=== PATIENT | male | born 1975 | race Caucasian/White ===

== ENCOUNTER 2018-03-26 20:26 | Emergency (ER) | payer OTHER, MEDICAID, SELFPAY ==
[2018-03-26 20:32] VITALS: BP 151/88; PULSE 74; RESP 14; TEMP 36.7; O2SAT 99
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
[2018-03-26] MEDS: AMPICILLIN/SULBACTAM 3 GM 3 GM in SODIUM CHLORIDE 0.9% 100 ML IV (22:07)
[2018-03-26] MEDS: TET,DIPH,PERTUSS(ACELL),VAC/PF 0.5 ML SYRINGE IM (22:13)
[2018-03-26 22:52] VITALS: BP 140/80; PULSE 67; RESP 14; O2SAT 100
[2018-03-26] MEDS: HYDROCODONE/ACET 5/325 PREPACK 1 BOTTLE MISC (23:20)
[2018-03-26 23:39] VITALS: BP 136/77; PULSE 71; RESP 16; O2SAT 99
== END 2018-03-26 23:40 | disposition home or self-care (01) ==
PROVIDERS: Emergency Provider Emergency Medicine; PCP Family Medicine
DX: S81.811A Laceration without foreign body, right lower leg, initial encounter (principal); W55.42XA Struck by pig, initial encounter
CPT/HCPCS: 12004; 12034; 90471; 96365; 99283; 99284; 90715; J0295

== ENCOUNTER → 2018-03-27 14:43 | Outpatient (CLI) | payer OTHER, MEDICAID, SELFPAY ==
--- NOTE | 2018-03-27 14:44 | DI.RAD.S_ITS ---
PROCEDURE: XR ELBOW LT MIN 3V INDICATIONS: LEFT ELBOW PAIN TECHNIQUE: 3 views of the elbow were acquired. COMPARISON: None. FINDINGS: Bones: No fractures or dislocations. No suspicious bony lesions. Soft tissues: No elbow joint effusion. No suspicious soft tissue calcifications. IMPRESSION: No acute radiographic findings. If there is continued pain, followup exam or additional imaging such as MRI or CT could be performed for further assessment. Dictated by: Cherri Arnold M.D. on 03/27/2018 at 15:02 Approved by: Cherri Arnold M.D. on 03/27/2018 at 15:04
== END ==
PROVIDERS: PCP Family Medicine; Visit Provider Family Medicine
DX: M25.522 Pain in left elbow (principal)
CPT/HCPCS: 73080

== ENCOUNTER 2022-02-11 05:51 | Emergency (ER) | payer OTHER, MEDICAID, SELFPAY ==
[2022-02-11 06:00] VITALS: BP 152/80; PULSE 73; RESP 17; O2SAT 98; BMI 37.5
[2022-02-11 06:13] LABS: Add Manual Diff / Slide Review NO; Basophils Absolute Auto 100 /uL (0-100); Eosinophils Absolute Auto 300 /uL (0-450); Hematocrit 43.4 % (41-53); Lymphocytes Absolute Auto 2900 /uL (1100-4500); Lymphocytes Percent Auto 33.8 % (25-40); Mean Corpuscular HGB Conc 34.4 % (30-36); Mean Corpuscular Hemoglobin 31.2 PG (26-34); Mean Corpuscular Volume 90.5 fL (80-100); Monocytes Absolute Auto 700 /uL (0-900); Monocytes Percent Auto 8.7 % (3-14); Neutrophils Absolute Auto 4500 /uL (1500-7000); Neutrophils Percent Auto 52.5 % (50-75); Platelet Count 343 X10^3/uL (150-400); Red Cell Distribution Width 13.6 % (11.6-14.8); White Blood Cell Count 8.6 X10^3/uL (4.5-11.0)
--- NOTE | 2022-02-11 06:13 | ED.GENADULT ---
HPI - General Adult <Adalberto Galindo DO - Last Filed: 02/11/22 17:57> General Chief complaint: Abdominal Pain Stated complaint: vomiting, dizzy Time Seen by Provider: 02/11/22 06:06 Source: patient and family Mode of arrival: Wheelchair Limitations: no limitations History of Present Illness HPI narrative: Patient is a 38-year-old male who is here for evaluation of dizzy sensation and nausea and vomiting. He states that the symptoms woke him from sleep earlier today. No headache. No ringing in his ears. No sore throat. No chest pain. No shortness of breath. He is having some abdominal pain and nausea and vomiting. Has not tried anything for symptoms prior to arrival. Has never had this in past. Related Data Previous Rx's Medication Instructions Recorded amoxicillin 875 mg-potassium 1 tab PO Q12H #14 tabs 03/26/18 clavulanate 125 mg tablet diazepam 2 mg tablet (Valium) 2 mg PO BID-TID PRN muscle spasm 02/11/22 #10 tabs meclizine 25 mg tablet 25 mg PO BID-TID PRN dizziness #14 02/11/22 tabs ondansetron 4 mg disintegrating 4 mg PO TID-QID PRN nausea and 02/11/22 tablet vomiting #10 tabs Allergies Allergy/AdvReac Type Severity Reaction Status Date / Time No Known Drug Allergies Allergy Verified 03/27/18 13:56 Review of Systems <Adalberto Galindo DO - Last Filed: 02/11/22 17:57> Constitutional Constitutional: Denies headache(s) ENT Ears, Nose, Mouth, and Throat: Reports vertigo, Denies headache(s) and Denies sore throat Cardiovascular Cardiovascular: Reports system reviewed and no additional complaints, except as documented Respiratory Respiratory: Reports system reviewed and no additional complaints, except as documented Gastrointestinal Gastrointestinal: Reports nausea and Reports vomiting Musculoskeletal Musculoskeletal: Reports system reviewed and no additional complaints, except as documented Integumentary/Breasts Skin/Breast: Reports system reviewed and no additional complaints, except as documented Neurologic Neurologic: Reports vertigo and Denies headache(s) Hematologic/Lymphatic On Anticoagulants: No Patient History <Adalberto Galindo DO - Last Filed: 02/11/22 17:57> Medical History Healthy adult Social History Smoking Status: Never smoker alcohol intake: never substance use type: does not use Smoking Status: Never smoker Substance Use Type: does not use Exam <Adalberto Galindo DO - Last Filed: 02/11/22 17:57> Initial Vital Signs Initial Vital Signs: Vital Signs Pulse Rate 73 02/11/22 06:00 Respiratory Rate 17 02/11/22 06:00 Blood Pressure 152/80 H 02/11/22 06:00 Pulse Oximetry 98 02/11/22 06:00 Oxygen Delivery Method 02/11/22 06:00 Const General: cooperative, comfortable, well developed, well groomed and diaphoretic HENMT Head: normal to inspection and normocephalic Resp Effort & Inspection: normal respiratory effort Auscultation: clear to auscultation bilaterally Cardio Rate: regular rate Rhythm: regular rhythm GI Inspection: normal to inspection and non-distended Skin General: no rashes or lesions noted Neuro General: patient alert, patient awake and moves all extremities Cognition: normal cognition Speech: speech normal Extrem General: normal to inspection and capillary refill normal Psych Appearance: grossly normal and well kempt <Wolfgang Doyle DO - Last Filed: 02/11/22 10:04> Initial Vital Signs Initial Vital Signs: Vital Signs Pulse Rate 73 02/11/22 06:00 Respiratory Rate 17 02/11/22 06:00 Blood Pressure 152/80 H 02/11/22 06:00 Pulse Oximetry 98 02/11/22 06:00 Oxygen Delivery Method 02/11/22 06:00 Course <Adalberto Galindo DO - Last Filed: 02/11/22 17:57> Orders Ordered: Discontinued Medications Diazepam (Diazepam 10 Mg/2 Ml Syringe) 2 mg IV NOW ONE Stop: 02/11/22 06:14 Last Admin: 02/11/22 06:20 Dose: 2 mg Documented By: CINTIA Sodium Chloride (Normal Saline 0.9%) 1,000 mls @ 1,000 mls/hr IV BOLUS ONE Stop: 02/11/22 07:05 Last Infusion: 02/11/22 07:35 Dose: 0 mls/hr Documented By: Admin: 02/11/22 06:19 Dose: 1,000 mls/hr Documented By: CINTIA Ondansetron HCl (Ondansetron 4 Mg/2 Ml Inj) 4 mg IV NOW ONE Stop: 02/11/22 06:14 Last Admin: 02/11/22 06:20 Dose: 4 mg Documented By: CINTIA Vital Signs Vital signs: Vital Signs - 8 hr 02/11/22 06:00 02/11/22 06:45 02/11/22 08:30 Temperature 97.5 F L Pulse Rate 73 64 Respiratory Rate 17 18 Blood Pressure 152/80 H 128/85 Pulse Oximetry 98 98 Oxygen Delivery Method Room Air Room Air 02/11/22 09:32 Temperature Pulse Rate 74 Respiratory Rate 18 Blood Pressure 131/85 Pulse Oximetry 99 Oxygen Delivery Method <Wolfgang Doyle DO - Last Filed: 02/11/22 10:04> Orders Ordered: Discontinued Medications Diazepam (Diazepam 10 Mg/2 Ml Syringe) 2 mg IV NOW ONE Stop: 02/11/22 06:14 Last Admin: 02/11/22 06:20 Dose: 2 mg Documented By: CINTIA Sodium Chloride (Normal Saline 0.9%) 1,000 mls @ 1,000 mls/hr IV BOLUS ONE Stop: 02/11/22 07:05 Last Infusion: 02/11/22 07:35 Dose: 0 mls/hr Documented By: Admin: 02/11/22 06:19 Dose: 1,000 mls/hr Documented By: CINTIA Ondansetron HCl (Ondansetron 4 Mg/2 Ml Inj) 4 mg IV NOW ONE Stop: 02/11/22 06:14 Last Admin: 02/11/22 06:20 Dose: 4 mg Documented By: CINTIA Reevaluation(s) Reevaluation #1: Patient demonstrates significant if not complete resolution of symptoms after above-stated therapies. He no longer is dizzy, is not vomiting, was able to walk a straight line without any apparent ataxia. Reevaluation #2: NIH Stroke Scale 1a. LOC: Patient is alert and keenly responsive (0) 1b. LOC Questions: Patient answers both LOC questions accurately (0) 1c. LOC Commands: Patient performs both tasks correctly (0) 2. Best Gaze: Normal (0) 3. Visual: No visual loss (0) 4. Facial palsy: Normal symmetrical movements (0) 5. Motor arm: No drift (0) 6. Motor leg: No drift (0) 7. Limb ataxia: Absent (0) 8. Sensory: Normal (0) 9. Best language: No aphasia; normal (0) 10. Dysarthria: Normal (0) 11. Extinction and inattention: No abnormality (0) NIHSS: 0 Vital Signs Vital signs: Vital Signs - 8 hr 02/11/22 06:00 02/11/22 06:45 02/11/22 08:30 Temperature 97.5 F L Pulse Rate 73 64 Respiratory Rate 17 18 Blood Pressure 152/80 H 128/85 Pulse Oximetry 98 98 Oxygen Delivery Method Room Air Room Air 02/11/22 09:32 Temperature Pulse Rate 74 Respiratory Rate 18 Blood Pressure 131/85 Pulse Oximetry 99 Oxygen Delivery Method Medical Decision Making <Adalberto Galindo DO - Last Filed: 02/11/22 17:57> Medical Records Medical records reviewed: Yes I reviewed the patient's medical records. Lab Data Result diagrams: 02/11/22 06:05 02/11/22 06:05 Labs: Lab Results 02/11/22 02/11/22 02/11/22 Range/Units 06:00 06:05 06:05 WBC 8.6 (4.5-11.0) X10^3/uL RBC 4.80 (4.5-5.9) X10^6/uL Hgb 15.0 (13.5-17.5) g/dL Hct 43.4 (41-53) % MCV 90.5 (80-100) fL MCH 31.2 (26-34) PG MCHC 34.4 (30-36) % RDW 13.6 (11.6-14.8) % Plt Count 343 (150-400) X10^3/uL Neut % (Auto) 52.5 (50-75) % Lymph % (Auto) 33.8 (25-40) % Orange % (Auto) 8.7 (3-14) % Eos % (Auto) 4.0 (2-4) % Baso % (Auto) 1.0 (0-2) % Neut # (Auto) 4500 (1604-8068) /uL Lymph # (Auto) 2900 (9085-4248) /uL Orange # (Auto) 700 (0-900) /uL Eos # (Auto) 300 (0-450) /uL Baso # (Auto) 100 (0-100) /uL Sodium 139 (137-145) mmol/L Potassium 3.6 (3.4-5.1) mmol/L Chloride 105 (98-107) mmol/L Carbon Dioxide 24 (22-32) mmol/L BUN 13 (9-20) mg/dL Creatinine 0.97 (0.66-1.25) mg/dL Estimated GFR > 60 (>60) mL/min BUN/Creatinine Ratio 13.4 (6-22) Glucose 179 H (70-100) mg/dL Calcium 8.9 (8.4-10.2) mg/dL Total Bilirubin 0.6 (0.2-1.3) mg/dL AST 24 (17-59) IU/L ALT 25 (<50) IU/L Alkaline Phosphatase 85 (38-126) U/L Total Protein 7.7 (6.3-8.2) g/dL Albumin 4.5 (3.5-5.0) g/dL Globulin 3.2 (1.7-4.1) g/dL Albumin/Globulin Ratio 1.4 (1.0-2.8) Lipase 69 (23-300) U/L Urine Color Urine Appearance Urine pH (4.5-8.0) Ur Specific [place] (1.000-1.035) Urine Protein (Negative) Urine Glucose (UA) (Negative) g/dL Urine Ketones (NEGATIVE) Urine Occult Blood (Negative) Urine Nitrate (Negative) Urine Bilirubin (NEGATIVE) Urine Urobilinogen (0.2) E.U./dL Ur Leukocyte Esterase (NEGATIVE) Urine RBC (0-5/HPF) Urine WBC (0-5/HPF) Urine Bacteria (None) Ur Culture Indicated? Micro UA Comment SARS-CoV-2 (PCR) Negative (Negative) 02/11/22 Range/Units 08:00 WBC (4.5-11.0) X10^3/uL RBC (4.5-5.9) X10^6/uL Hgb (13.5-17.5) g/dL Hct (41-53) % MCV (80-100) fL MCH (26-34) PG MCHC (30-36) % RDW (11.6-14.8) % Plt Count (150-400) X10^3/uL Neut % (Auto) (50-75) % Lymph % (Auto) (25-40) % Orange % (Auto) (3-14) % Eos % (Auto) (2-4) % Baso % (Auto) (0-2) % Neut # (Auto) (7705-9158) /uL Lymph # (Auto) (8959-5084) /uL Orange # (Auto) (0-900) /uL Eos # (Auto) (0-450) /uL Baso # (Auto) (0-100) /uL Sodium (137-145) mmol/L Potassium (3.4-5.1) mmol/L Chloride (98-107) mmol/L Carbon Dioxide (22-32) mmol/L BUN (9-20) mg/dL Creatinine (0.66-1.25) mg/dL Estimated GFR (>60) mL/min BUN/Creatinine Ratio (6-22) Glucose (70-100) mg/dL Calcium (8.4-10.2) mg/dL Total Bilirubin (0.2-1.3) mg/dL AST (17-59) IU/L ALT (<50) IU/L Alkaline Phosphatase (38-126) U/L Total Protein (6.3-8.2) g/dL Albumin (3.5-5.0) g/dL Globulin (1.7-4.1) g/dL Albumin/Globulin Ratio (1.0-2.8) Lipase (23-300) U/L Urine Color Yellow Urine Appearance Clear Urine pH 5.0 (4.5-8.0) Ur Specific [place] 1.025 (1.000-1.035) Urine Protein Negative (Negative) Urine Glucose (UA) Negative (Negative) g/dL Urine Ketones 1+ H (NEGATIVE) Urine Occult Blood Negative (Negative) Urine Nitrate Negative (Negative) Urine Bilirubin Negative (NEGATIVE) Urine Urobilinogen 0.2 (0.2) E.U./dL Ur Leukocyte Esterase Negative (NEGATIVE) Urine RBC None seen (0-5/HPF) Urine WBC None seen (0-5/HPF) Urine Bacteria None seen (None) Ur Culture Indicated? Cult not indicated Micro UA Comment Microscopic normal SARS-CoV-2 (PCR) (Negative) <Wolfgang Doyle DO - Last Filed: 02/11/22 10:04> Lab Data Labs: Lab Results 02/11/22 02/11/22 02/11/22 Range/Units 06:00 06:05 06:05 WBC 8.6 (4.5-11.0) X10^3/uL RBC 4.80 (4.5-5.9) X10^6/uL Hgb 15.0 (13.5-17.5) g/dL Hct 43.4 (41-53) % MCV 90.5 (80-100) fL MCH 31.2 (26-34) PG MCHC 34.4 (30-36) % RDW 13.6 (11.6-14.8) % Plt Count 343 (150-400) X10^3/uL Neut % (Auto) 52.5 (50-75) % Lymph % (Auto) 33.8 (25-40) % Orange % (Auto) 8.7 (3-14) % Eos % (Auto) 4.0 (2-4) % Baso % (Auto) 1.0 (0-2) % Neut # (Auto) 4500 (9257-8253) /uL Lymph # (Auto) 2900 (9331-8667) /uL Orange # (Auto) 700 (0-900) /uL Eos # (Auto) 300 (0-450) /uL Baso # (Auto) 100 (0-100) /uL Sodium 139 (137-145) mmol/L Potassium 3.6 (3.4-5.1) mmol/L Chloride 105 (98-107) mmol/L Carbon Dioxide 24 (22-32) mmol/L BUN 13 (9-20) mg/dL Creatinine 0.97 (0.66-1.25) mg/dL Estimated GFR > 60 (>60) mL/min BUN/Creatinine Ratio 13.4 (6-22) Glucose 179 H (70-100) mg/dL Calcium 8.9 (8.4-10.2) mg/dL Total Bilirubin 0.6 (0.2-1.3) mg/dL AST 24 (17-59) IU/L ALT 25 (<50) IU/L Alkaline Phosphatase 85 (38-126) U/L Total Protein 7.7 (6.3-8.2) g/dL Albumin 4.5 (3.5-5.0) g/dL Globulin 3.2 (1.7-4.1) g/dL Albumin/Globulin Ratio 1.4 (1.0-2.8) Lipase 69 (23-300) U/L Urine Color Urine Appearance Urine pH (4.5-8.0) Ur Specific [place] (1.000-1.035) Urine Protein (Negative) Urine Glucose (UA) (Negative) g/dL Urine Ketones (NEGATIVE) Urine Occult Blood (Negative) Urine Nitrate (Negative) Urine Bilirubin (NEGATIVE) Urine Urobilinogen (0.2) E.U./dL Ur Leukocyte Esterase (NEGATIVE) Urine RBC (0-5/HPF) Urine WBC (0-5/HPF) Urine Bacteria (None) Ur Culture Indicated? Micro UA Comment SARS-CoV-2 (PCR) Negative (Negative) 02/11/22 Range/Units 08:00 WBC (4.5-11.0) X10^3/uL RBC (4.5-5.9) X10^6/uL Hgb (13.5-17.5) g/dL Hct (41-53) % MCV (80-100) fL MCH (26-34) PG MCHC (30-36) % RDW (11.6-14.8) % Plt Count (150-400) X10^3/uL Neut % (Auto) (50-75) % Lymph % (Auto) (25-40) % Orange % (Auto) (3-14) % Eos % (Auto) (2-4) % Baso % (Auto) (0-2) % Neut # (Auto) (7635-3787) /uL Lymph # (Auto) (4839-5826) /uL Orange # (Auto) (0-900) /uL Eos # (Auto) (0-450) /uL Baso # (Auto) (0-100) /uL Sodium (137-145) mmol/L Potassium (3.4-5.1) mmol/L Chloride (98-107) mmol/L Carbon Dioxide (22-32) mmol/L BUN (9-20) mg/dL Creatinine (0.66-1.25) mg/dL Estimated GFR (>60) mL/min BUN/Creatinine Ratio (6-22) Glucose (70-100) mg/dL Calcium (8.4-10.2) mg/dL Total Bilirubin (0.2-1.3) mg/dL AST (17-59) IU/L ALT (<50) IU/L Alkaline Phosphatase (38-126) U/L Total Protein (6.3-8.2) g/dL Albumin (3.5-5.0) g/dL Globulin (1.7-4.1) g/dL Albumin/Globulin Ratio (1.0-2.8) Lipase (23-300) U/L Urine Color Yellow Urine Appearance Clear Urine pH 5.0 (4.5-8.0) Ur Specific [place] 1.025 (1.000-1.035) Urine Protein Negative (Negative) Urine Glucose (UA) Negative (Negative) g/dL Urine Ketones 1+ H (NEGATIVE) Urine Occult Blood Negative (Negative) Urine Nitrate Negative (Negative) Urine Bilirubin Negative (NEGATIVE) Urine Urobilinogen 0.2 (0.2) E.U./dL Ur Leukocyte Esterase Negative (NEGATIVE) Urine RBC None seen (0-5/HPF) Urine WBC None seen (0-5/HPF) Urine Bacteria None seen (None) Ur Culture Indicated? Cult not indicated Micro UA Comment Microscopic normal SARS-CoV-2 (PCR) (Negative) MDM Narrative Medical decision making narrative: [0700] (Vivek) Patient received in sign out from [Josie]. I have reviewed the clinical course and performed an independent history and physical exam. Multiple etiologies for patient's symptoms considered including: [Peripheral vertigo such as BPPV versus stroke versus electrolyte abnormality versus other] Patient's symptoms improved over duration of stay with above-stated therapies. Findings and discharge diagnosis discussed with patient/family followed by verbalization of understanding Return precautions discussed with patient/family whom verbalize understanding. Discharge Plan Departure Patient Disposition: Home Clinical Impression: Peripheral vertigo Instructions: Vertigo Activity Restrictions/Additional Instructions: *You have been diagnosed with [peripheral vertigo. Thankfully, your history, physical exam, labs and response to therapies are very reassuring. There is no evidence of stroke, heart attack, electrolyte abnormality or other significant diagnosis that would require and other or different immediate intervention.] *What to do: *Please continue to take your regular medications as directed. [ x] New medication prescriptions sent to your pharmacy: [ [facility] in [place]] [ ] New medication written as a paper prescription [ ] No new medications given *Please follow up with your primary care provider later today as planned, however. Let them know you were seen in the Emergency Department and that we ask that you be seen in follow up. We will electronically transmit a record of today's note if your PCP is in our system * also, as we discussed it would be reasonable to consider following up with your ear nose and throat doctor *If you do not have a primary care provider please contact the [facility] Resource line at [phone]. They will ask some questions about your medical history and help get you set up with a doctor in the community. *Return to Emergency Department if you should have any new, worsening or concerning symptoms, such as [fever greater than 101 F, shaking chills, worsening pain, persistent vomiting or other bothersome symptoms] Prescriptions: New meclizine 25 mg tablet 25 mg PO BID-TID PRN (Reason: dizziness) Qty: 14 0RF ondansetron 4 mg tablet,disintegrating 4 mg PO TID-QID PRN (Reason: nausea and vomiting) Qty: 10 0RF diazepam [Valium] 2 mg tablet 2 mg PO BID-TID PRN (Reason: muscle spasm) Qty: 10 0RF No Action amoxicillin-pot clavulanate 875-125 mg tablet 1 tab PO Q12H Qty: 14 0RF Referrals: Marques Benítez MD [Primary Care Provider] - Visit Report Forms: Patient Portal/API
[2022-02-11] MEDS: SODIUM CHLORIDE 0.9% 1,000 ML 1000 ML IV (06:19)
[2022-02-11] MEDS: diazePAM 10 MG/2 ML SYRINGE 2 MG IV (06:20)
[2022-02-11] MEDS: ONDANSETRON 4 MG/2 ML INJ IV (06:20)
[2022-02-11 06:22] LABS: Alanine Aminotransferase 25 IU/L (<50); Albumin 4.5 g/dL (3.5-5.0); Albumin Globulin Ratio 1.4 (1.0-2.8); Alkaline Phosphatase 85 U/L (38-126); Aspartate Aminotransferase 24 IU/L (17-59); BUN Creatinine Ratio 13.4 (6-22); Bilirubin Total 0.6 mg/dL (0.2-1.3); Blood Urea Nitrogen 13 mg/dL (9-20); Calcium 8.9 mg/dL (8.4-10.2); Carbon Dioxide 24 mmol/L (22-32); Chloride 105 mmol/L (98-107); Estimated Glomerular Filt Rate > 60 mL/min (>60); Globulin 3.2 g/dL (1.7-4.1); Glucose 179 mg/dL (70-100); HEMOLYSIS < 15 (0-50); Lipase 69 U/L (23-300); Potassium 3.6 mmol/L (3.4-5.1); Sodium 139 mmol/L (137-145); Total Protein 7.7 g/dL (6.3-8.2)
[2022-02-11 06:24] LABS: COVID19 -Nasal RAPID Negative (Negative)
[2022-02-11 06:45] VITALS: TEMP 36.4
[2022-02-11 08:17] LABS: Appearance Urine UA CLEAR; Bilirubin Urine UA NEGATIVE (NEGATIVE); Color Urine UA YELLOW; Glucose Urine UA NEGATIVE (Negative); Ketones Urine UA 1+ (NEGATIVE); Leukocyte Esterase Urine UA NEGATIVE (NEGATIVE); Nitrite Urine UA NEGATIVE (Negative); Occult Blood Urine UA NEGATIVE (Negative); Protein Urine UA NEGATIVE (Negative); Specific Gravity Urine UA 1.025 (1.000-1.035); Urobilinogen Urine UA 0.2 E.U./dL (0.2)
[2022-02-11 08:27] LABS: Bacteria Urine None Seen; Culture Indicated Urine Cult Not Indicated; RBC Urine None Seen (0-5/HPF); Urine Comments Microscopic Normal; WBC Urine None Seen (0-5/HPF)
[2022-02-11 08:30] VITALS: BP 128/85; PULSE 64; RESP 18; O2SAT 98
[2022-02-11 09:32] VITALS: BP 131/85; PULSE 74; RESP 18; O2SAT 99
== END 2022-02-11 09:32 | disposition home or self-care (01) ==
PROVIDERS: Emergency Medicine; Emergency Provider Emergency Medicine; PCP Family Medicine
DX: H81.399 Other peripheral vertigo, unspecified ear (principal); R11.2 Nausea with vomiting, unspecified; R10.9 Unspecified abdominal pain; Z20.822 Contact with and (suspected) exposure to COVID-19
CPT/HCPCS: 36415; 80053; 81001; 83690; 85025; 87635; 96361; 96374; 96375; 99284; C9803; J2405; J3360